=== PATIENT | male | born 1960 | race Caucasian/White ===

== ENCOUNTER 2022-05-18 08:04 | Outpatient (REF) | payer MEDICAID, SELFPAY ==
--- NOTE | ~2022-05-18 | XR_ITS ---
EXAMINATION: XR SHOULDER, LEFT CLINICAL INFORMATION: Osteoarthritis COMPARISON: Previous x-ray April 2014 TECHNIQUE: AP external rotation, Grashey, scapular Y, and axillary views of the left shoulder. FINDINGS: Bone alignment is normal. No fracture or dislocation. Mild arthritis at the glenohumeral joint. Moderate arthritis at the acromioclavicular joint. Normal soft tissues. XR/XR shoulder LT min 2V IMPRESSION: Arthritis.
--- NOTE | ~2022-05-18 | XR_ITS ---
EXAMINATION: KNEE X-RAY CLINICAL INFORMATION: Bilateral knee pain COMPARISON: None TECHNIQUE: 3 views of each knee FINDINGS: Left: Bone alignment is normal. No fracture or dislocation is seen. There is mild arthritis at the femoral tibial and patellofemoral joints. There is a small joint effusion. There is a soft tissue density seen on the lateral view projecting over the suprapatellar bursa likely representing something on the patient's skin or clothing. Right: Bone alignment is normal. No acute fracture or dislocation. There is severe arthritis at the patellofemoral joint. There is a large inferior osteophyte projecting off the inferior patella and proximal patellar tendon. There is a small joint effusion. XR/XR knee LT 3V IMPRESSION: Bilateral arthritis, greatest at the right patellofemoral joint.
--- NOTE | ~2022-05-18 | XR_ITS ---
EXAMINATION: KNEE X-RAY CLINICAL INFORMATION: Bilateral knee pain COMPARISON: None TECHNIQUE: 3 views of each knee FINDINGS: Left: Bone alignment is normal. No fracture or dislocation is seen. There is mild arthritis at the femoral tibial and patellofemoral joints. There is a small joint effusion. There is a soft tissue density seen on the lateral view projecting over the suprapatellar bursa likely representing something on the patient's skin or clothing. Right: Bone alignment is normal. No acute fracture or dislocation. There is severe arthritis at the patellofemoral joint. There is a large inferior osteophyte projecting off the inferior patella and proximal patellar tendon. There is a small joint effusion. XR/XR knee RT 3V IMPRESSION: Bilateral arthritis, greatest at the right patellofemoral joint.
== END 2022-05-18 08:05 | disposition home or self-care (01) ==
LOC: HO.XRAY 08:04
PROVIDERS: PCP Internal Medicine; Visit Provider Internal Medicine
DX: M19.012 Primary osteoarthritis, left shoulder (principal); M25.561 Pain in right knee; M25.562 Pain in left knee
CPT/HCPCS: 73030; 73562

== ENCOUNTER 2023-02-21 08:26 | Outpatient (REF) | payer MEDICAID, SELFPAY ==
--- NOTE | ~2023-02-21 | XR_ITS ---
EXAMINATION: XR SHOULDER, LEFT CLINICAL INFORMATION: Chronic left shoulder pain COMPARISON: None available. TECHNIQUE: AP external rotation, Grashey, scapular Y, and axillary views of the left shoulder. FINDINGS: Glenohumeral and acromioclavicular degenerative changes. No fracture or dislocation. Visualized left lung and ribs are unremarkable. Aortic calcifications. XR/XR shoulder LT min 2V IMPRESSION: Degenerative changes left shoulder. No acute bony pathology.
== END 2023-02-21 08:27 | disposition home or self-care (01) ==
LOC: HO.XRAY 08:26
PROVIDERS: PCP Internal Medicine; Visit Provider Internal Medicine
DX: M25.512 Pain in left shoulder (principal); G89.29 Other chronic pain
CPT/HCPCS: 73030

== ENCOUNTER 2025-03-10 10:55 | Outpatient (REF) | payer MEDICAID, SELFPAY ==
--- OUTSIDE RECORDS SUMMARY | 2025-03-10 12:30 | XMS_ITS | Encounter Summary ---
Author Organization [employer] Address [address] [facility] 7t [place] [address] Care Team Providers Care Business Unit Controller Name Role Phone Zoë Leiva MD Primary Care Provider [phone]- [phone] Encounter Details Date Type Department Care Team ([facility] st Contact Info) Description 02/23/2023 Orders Only [facility] CHC MED & PEDS [address] [place] [address] Zoë Leiva MD [address] [place] [address] Chronic left shoulder pain (Primary Dx) Social History Tobacco Use Types Packs/Day Years Used Date Smoking Tobacco: Never Smokeless Tobacco: Never Alcohol Use Standard Drinks/Week Comments Yes 12 (1 standard drink = 0.6 oz pu re alcohol) Sex and Gender Information Value Date Recorded Sex Assigned at Male 05/08/2022 10:20 AM EDT Legal Sex Male 10:20 AM EDT Gender Identity Male 05/08/2022 10:20 AM EDT Sexual Orientation Straight 05/08/2022 10 :20 AM EDT documented as of this encounter Plan of Treatment Not on file documented as of this encounter Visit Diagnoses Diagnosis Chronic left shoulder pain- Primary Pain in joint, shoulder region documented in this encounter Care Teams Business Unit Controller Relationship Specialty Start Date End Date Zoë Leiva MD [address] [place] [address] PCP - General Internal Medicine 04/27/15 documented as of this encounter"
--- OUTSIDE RECORDS SUMMARY | 2025-03-10 12:30 | XMS_ITS | Clinical Summary ---
Author Organization [employer] Address [address] [facility] 7t [place] [address] Care Team Providers Care Segmental Paving Supervisor Name Role Phone Zoë Leiva MD Primary Care Provider +- [phone] Allergies No known active allergies Medications * This document contains information received from the source organization and may not represent a complete record from that organization. hydroCHLOROthiazi de (Microzide) 12.5 MG capsuleIndication s:Primary hypertension TAKE ONE CAPSULE DAILY 90 capsule 1 3 Active losartan (Cozaar) 100 MG tabletIndications :Primary hypertension TAKE ONE TABLET DAILY 90 tablet 1 3 Active Diclofenac Sodium 1 % gelIndications:Ch ronic left shoulder pain To apply to the affected area 3 times a day 100 g 3 Active albuterol (2.5 MG/3ML) 0.083% nebulizer solution INHALE ONE AMPULE USING A NEBULIZER EVERY 6 HOURS NEEDED 90 mL 5 4 Active hydrALAZINE (Apresoline) 10 MG tabletIndications :Benign hypertension TAKE ONE TABLET BY MOUTH THREE TIMES DAILY 270 tablet 1 4 Active hydroCHLOROthiazi de 12.5 MG tabletIndications :Benign hypertension TAKE ONE TABLET EVERY MORNING 30 tablet 11 5 Active losartan (Cozaar) 100 MG tabletIndications :Benign hypertension TAKE ONE TABLET DAILY 30 tablet 5 Active amLODIPine (Norvasc) 10 MG tabletIndications :Benign hypertension TAKE ONE TABLET EVERY MORNING 30 tablet 11 5 Active Omeprazole 20 MG tablet delayed-releaseIn dications:Reflux gastritis Take 1 tablet (20 mg) by mouth Once per day. 30 tablet 1 5 Active budesonide-formot kell (Symbicort) 160-4.5 MCG/ACT inhalerIndication s:Moderate persistent asthma, unspecified whether complicated Inhale 2 puffs in the morning and at bedtime. Rinse mouth with water after use to reduce aftertaste and incidence of candidiasis. Do not swallow. 10.2 g 5 5 Active albuterol (Ventolin HFA) 108 (90 Base) MCG/ACT inhalerIndication s:Moderate persistent asthma, unspecified whether complicated Inhale 2 puffs every 6 (six) hours if needed for wheezing. 18 g 5 5 Active allopurinol (Zyloprim) 300 MG tablet TAKE ONE TABLET TWICE DAILY 180 tablet 1 5 Active simvastatin (Zocor) 20 MG tabletIndications :Hypercholesterol emia TAKE ONE TABLET EVERY EVENING 90 tablet 1 5 Active Active Problems Problem Noted Date Diagnosed Date PENG (generalized anxiety disorder) 02/23/2025 Current moderate episode of major depressive disorder without prior episode 02/23/2025 Gout 01/01/2014 Benign hypertension 10/01/2013 Asthma 10/01/2013 Encounters * This document contains information received from the source organization and may not represent a complete record from that organization. Date Type Department Care Team Description 02/25/2025 Telephone [facility] MEDICINE [address] [place] [address] Zoë Leiva MD 02/17/2025 2:00 PM EDT Office Visit [facility] CHC MED & PEDS [address] [place], [place] [phone] Zoë Leiva MD Benign hypertension (Primary Dx); Moderate persistent asthma, unspecified whether complicated; Tremor; Other depression; Dietary counseling; Exercise counseling; Class 3 severe obesity due to excess calories with serious comorbidity and body mass index (BMI) of 40.0 to 44.9 in adult 02/17/2025 Travel 02/03/2025 Refill [facility] MEDICINE [address] [place] [address] Zoë Leiva MD Hypercholesterolemia 01/07/2025 Telephone [facility] [address] [place] [address] Zoë Leiva MD EEG ORDER 12/23/2024 Telephone [facility] [address] [place], [place] [phone] Zoë Leiva MD from Last 3 Months Immunizations Immunization Administration Dates Next Due Influenza Injectable Quadriv alant Preservative Free IIV4 MDCK 06/07/2021,04/20/2020 Influenza injectable quadriv alent IIV4 with preservative 05/05/2019 Influenza injectable quadriv alent preservative free 05/16/2022,06/17/2018,04/26/2017 Influenza, IIV3, injectable 04/13/2014 Pneumococcal Conjugate PCV 20 03/07/2024 Tdap 04/26/2017 Zoster, Recombinant 11/12/2020,04/20/2020 Family History Medical History Relation Name Comments Hypertension Mother Stroke Mother Relation Name Status Comments Mother Social History Tobacco Use Types Packs/Day Years Used Date Smoking Tobacco: Never Smokeless Tobacco: Never Tobacco Cessation:Counseling Given: Not Answered Alcohol Use Standard Drinks/Week Comments Yes 12 (1 standard drink = 0.6 oz pu re alcohol) Depression Answer Date Recorded Patient Health Questionnaire-9 Score 15 02/23/2025 Patient Health Questionnaire-9 Score 15 02/23/2025 Last PHQ-9: Questionnaire Data Not on file 0 02/23/2025 Housing Stability Answer Date Recorded What is your housing situation today? I have petr foreman 02/17/[address] you li ve. Do you have problems with any of the following? None of the above 02/17/2025 Food Insecurity Answer Date Recorded Within the past 12 months, y ou worried that your food would run out before you got money to buy more: Never True 02/17/2025 Within the past 12 months,th e food you bought just didn't last and you didn't have enough money to get more: Never True 06/2025 Transportation Answer Date Recorded In the past 12 months, has l ack of transportation kept you from medical appts, meetings, work or from getting things needed for daily living? No 02/17/2025 Utilities Answer Date Recorded In the past 12 months, has t he electric, gas, oil or water company threatened to shut off services in your home? No 02/17/2025 Depression Answer Date Recorded Patient Health Questionnaire-2 Score 4 02/23/2025 Internet Access Answer Date Recorded Internet Access Q1 No 02/17/2025 Internet Access Q2 I do not want or need it 02/06 Sex and Gender Information Value Date Recorded Sex Assigned at Male 05/08/2022 10:20 AM EDT Legal Sex Male 10:20 AM EDT Gender Identity Male 05/08/2022 10:20 AM EDT Sexual Orientation Straight 05/08/2022 10 :20 AM EDT Last Filed Vital Signs Vital Sign Reading Time Taken Comments Blood Pressure 132/80 02/17/2025 2:03 PM EDT manually checked Pulse 79 02/17/2025 2:03 PM EDT Temperature 36.5 C (97.7 F) 02/17/2025 2:03 PM EDT Respiratory Rate 20 02/17/2025 2:03 PM EDT Oxygen Saturation 98% 11/20/2024 12: 21 PM EDT Inhaled Oxygen Concentration - - Weight 116 kg (256 lb) 02/17/2025 2:03 PM EDT Height 167.6 cm (5' 6 ) 02/17/2025 2:03 PM EDT Body Mass Index 41.32 02/17/2025 2:03 PM EDT Plan of Treatment Health Maintenance Due Date Last Done Comments CT Colonography 1962 Colonoscopy 1962 Colorectal Cancer Screening 1962 FIT DNA/Cologuard 1962 FIT 1962 FOBT 1962 HIV Screening 1962 Lipid Panel 1962 Sigmoidoscopy 1962 Alcohol/Substance Use Screening 1974 Hepatitis C Screening 02/19/1980 RSV Patients and Patients Aged 60 years or older (1 - Risk 60-74 years 1-dose series) 2022 COVID-19 Vaccine ( season) 2024 10/20/2020, 09/22/2020 Influenza Vaccine (#1) 2025 , 06/07/2021, 04/20/2020, Additional history exists Depression Monitoring 08/26/2025 02/23/2025, 025 Disability Screening 02/17/2026 02/17/2025 SDOH Screening 02/17/2026 02/17/2025 Tobacco Screening 02/17/2026 02/17/2025 DTaP/Tdap/Td Vaccines (2 - Td or Tdap) 04/26/2027 04/26/2017 Zoster Vaccines Completed 11/12/2020, 04/20/2020 Pneumococcal Vaccine: 50+ Years Completed 03/07/2024 HIB Vaccines Aged Out No longer eligi ble based on patient's age to complete this topic HPV Vaccines Aged Out No longer eligi ble based on patient's age to complete this topic Hepatitis A Vaccines Aged Out No long er eligible based on patient's age to complete this topic Hepatitis B Vaccines Aged Out No long er eligible based on patient's age to complete this topic IPV Vaccines Aged Out No longer eligi ble based on patient's age to complete this topic Meningococcal B Vaccine Aged Out No l onger eligible based on patient's age to complete this topic Meningococcal Vaccine Aged Out No myrna maggie eligible based on patient's age to complete this topic RSV under 20 months Aged Out No longe r eligible based on patient's age to complete this topic Rotavirus Vaccines Aged Out No longer eligible based on patient's age to complete this topic Insurance [facility] C3 Care Teams Segmental Paving Supervisor Relationship Specialty Start Date End Date Zoë Leiva MD [address] [place] [phone] PCP - General Internal Medicine 04/27/15
[2025-03-10 15:07] LABS: Alanine Aminotransferase 28 U/L (0-40); Albumin Level 4.6 g/dL (3.5-5.0); Alkaline Phosphatase 78 U/L (39-117); Anion Gap 11 (12-20); Aspartate Amino Transferase 32 U/L (5-37); Blood Urea Nitrogen 12 mg/dL (9-16); Calcium 8.9 mg/dL (8.4-10.2); Carbon Dioxide 35 mmol/L (22-29); Chloride 101 mmol/L (96-108); Cholesterol 153 mg/dL (<200); Estimated Glomerular Filt Rate > 60; HDL Cholesterol 54 mg/dL (>40); Potassium 4.0 mmol/L (3.3-5.1); Sodium 143 mmol/L (135-145); Total Protein 7.1 g/dL (6.5-8.0); Triglycerides 93 mg/dL (<150)
[2025-03-11 08:22] LABS: ~HepC Num1 0.16 S/CO (0.00-0.79); ~Hepatitis C Antibody Nonreactive (Nonreactive)
== END 2025-03-10 10:56 | disposition home or self-care (01) ==
LOC: HO.CHCLDS 10:55
PROVIDERS: Visit Provider Internal Medicine
DX: I10 Essential (primary) hypertension (principal); Z11.59 Encounter for screening for other viral diseases
CPT/HCPCS: 36415; 80053; 80061; 84443; 86803

== ENCOUNTER 2025-03-11 07:42 | Outpatient (REF) | payer MEDICAID, SELFPAY ==
--- OUTSIDE RECORDS SUMMARY | 2025-03-11 07:46 | XMS_ITS | Encounter Summary ---
Author Organization [employer] Address [address] [facility] 7t [place] [address] Care Team Providers Care Slope Hoist Operator Name Role Phone Zoë Leiva MD Primary Care Provider [phone]- [phone] Encounter Details Date Type Department Care Team ([facility] st Contact Info) Description 02/23/2023 Orders Only [facility] CHC MED & PEDS [address] [place] [address] Zoë Leiva MD [address] [place] [address] Chronic left shoulder pain (Primary Dx) Social [...] region documented in this encounter Care Teams Slope Hoist Operator Relationship Specialty Start Date End Date Zoë Leiva MD [address] [place] [address] PCP - General Internal Medicine 04/27/15 documented as of this encounter
--- OUTSIDE RECORDS SUMMARY | 2025-03-11 07:47 | XMS_ITS | Encounter Summary ---
Author Organization [employer] Address [address] [facility] 7t [place] [address] Care Team Providers Care Cable Television Line Technician Name Role Phone Zoë Leiva MD Primary Care Provider [phone] Encounter Details Date Type Department Care Team (Latest Contact Info) Description 03/10/2025 Results Follow-Up [facility] MEDICINE [address] [place] [address] Kayla Truong, RN [address] [place] [address] Lipid Panel, Standard, Comprehensive Metabolic Panel, TSH W/Reflex to FT4 Social History Tobacco Use Types Packs/Day Years [...] your housing situation today? I have petr kellen 02/17/[address] you li [...] AM EDT documented as of this encounter Miscellaneous Notes * Telephone Encounter - Kayla Truong RN - 03/10/2025 4:08 PM EDT T/C to pt via [employer] Pillar Worker #[id number] to advise of message from PCP re: lab results. No answer, v/m left to return call to [facility] nurses. * Telephone Encounter - Kayla Truong RN - 03/10/2025 4:00 PM EDT ----- Message from Zoë Leiva MD sent at 03/10/2025 3:42 PM EDT ----- Please call. Labs reviewed: 1) normal cholesterol level. No intervention needed in that regard. Patient is to continue with a low-cholesterol diet. 2) normal TSH. No intervention needed. 3) elevated carbon dioxide in the blood which could be related to patient's asthma. Unclear if the asthma is well-controlled. If Has to use his albuterol (the rescue inhaler) 2-3 times a week, I will have to order a pulmonary function test to assess if he has chronic obstructive pulmonary disease. ----- Message ----- From: Interface, Lab Results In Sent: 03/10/2025 3:07 PM EDT To: Zoë Leiva MD documented in this encounter Plan of Treatment Not on file documented as of this encounter Visit Diagnoses Not on filedocumented in this encounter Additional Health Concerns Assessment Noted Time PHQ-9 Depression Total Score: 15 025 3:22 PM EDT documented as of this encounter Care Teams Cable Television Line Technician Relationship Specialty Start Date End Date Zoë Leiva MD [address] [place] [phone] PCP - General Internal Medicine 04/27/15 documented as of this encounter
--- OUTSIDE RECORDS SUMMARY | 2025-03-11 07:47 | XMS_ITS | Clinical Summary ---
Author Organization [employer] Address [address] [facility] 7t [place] [address] Care Team Providers Care Application Infrastructure Engineer Name Role Phone Zoë Leiva MD Primary Care Provider +- [phone] Allergies No known active allergies Medications * [...] organization. Date Type Department Care Team Description 03/10/2025 Results Follow-Up [address] [address] Kayla Truong RN Lipid Panel, Standard, Comprehensive Metabolic Panel, TSH W/Reflex to FT4 03/10/2025 Orders Only [facility] MED & PEDS [address] [place] [address] Zoë Leiva MD 02/25/2025 Telephone [facility] MEDICINE [address] [place] [address] Zoë Leiva MD 02/17/2025 2:00 PM EDT Office Visit [facility] MED & PEDS [address] [place] [address] Zoë Leiva MD Benign hypertension (Primary Dx); Moderate persistent asthma, unspecified whether complicated; Tremor; Other depression; Dietary counseling; Exercise counseling; Class 3 severe obesity due to excess calories with serious comorbidity and body mass index (BMI) of 40.0 to 44.9 in adult 02/17/2025 Travel 02/03/2025 Refill [facility] MEDICINE [address] [place], [place] [phone] Zoë Leiva MD Hypercholesterolemia 01/07/2025 Telephone [facility] [address] [place], [place] [phone] Zoë Leiva MD EEG ORDER 12/23/2024 Telephone [facility] [address] [place], [place] [phone] Zoë Leiva MD from Last 3 Months [...] FIT 1962 FOBT 1962 HIV Screening 1962 Sigmoidoscopy 1962 Alcohol/Substance Use Screening 1974 Hepatitis C Screening 02/19/1980 RSV Patients and Patients Aged 60 years or older (1 - Risk 60-74 years 1-dose series) 2022 COVID-19 Vaccine (3 - 2025-26 season) 2025 10/20/2020, 09/22/2020 Influenza Vaccine (#1) 2025 , 06/07/2021, 04/20/2020, Additional history exists Depression Monitoring 08/26/2025 02/23/2025, 025 Disability Screening 02/17/2026 02/17/2025 SDOH Screening 02/17/2026 02/17/2025 Tobacco Screening 02/17/2026 02/17/2025 DTaP/Tdap/Td Vaccines (2 - Td or Tdap) 04/26/2027 04/26/2017 Lipid Panel 03/10/2030 03/10/2025 Zoster Vaccines Completed 11/12/2020, 04/20/2020 Pneumococcal Vaccine: [...] on patient's age to complete this topic Procedures Procedure Name Priority Date/Time Associated Diagnosis Comments TSH W/REFLEX TO FT4 Routine 03/10/2025 1 0:57 AM EDT Benign hypertension COMPREHENSIVE METABOLIC PANEL Routine 03/10/2025 10:57 AM EDT Benign hypertension LIPID PANEL, STANDARD Routine 03/10/2025 10:57 AM EDT Benign hypertension from Last 3 Months Results * TSH W/Reflex to FT4 (03/10/2025 10:57 AM EDT) TSH reflex Free T4 1.41 0.32 - 4.0 uIU/mL [facility] Blood Venous blood specimen / Unknown 03/10/2025 10:57 AM EDT 03/10/2025 2:27 PM EDT us Zoë Leiva MD LAB BLOOD ORDERABLES Final Result Performing Organization Address [facility] Co de Phone Number [facility] [address] [place] [phone] * Lipid Panel, Standard (03/10/2025 10:57 AM EDT) Triglycerides 93 <150 mg/dL [facility] Comment:Desirable Triglyceri de: less than 150 mg/dLBorderline High Triglyceride 150-199 mg/dLHigh Triglyceride: 200-499 mg/dLVery High Triglyceride: greater than or equal to 5OO mg/dL Cholesterol 153 <200 mg/dL [facility] Comment:Desirable Cholestero l: less than 200 mg/dLBorderline High Cholesterol: 200-239 mg/dLHigh Cholesterol: greater than 239 mg/dL LDL Cholesterol Calculated 81 <100 mg/dL [facility] Comment:Desirable LDL: less than 100 mg/dLNear Optimal/Above Optimal LDL: 110- 129 mg/dLBorderline High LDL: 130-159 mg/dLHigh LDL: 160-189 mg/dLVery High LDL: greater than or equal to 190 mg/dL HDL Cholesterol 54 >40 mg/dL [facility] Comment:Desirable HDL: great er than 40 mg/dL Note: This HDL assay may give artificially low results in patients with liver disease. Blood Venous blood specimen / Unknown 03/10/2025 10:57 AM EDT 03/10/2025 2:27 PM EDT us Zoë Leiva MD LAB BLOOD ORDERABLES Final Result Performing Organization Address City/[facility]/ZIP Co de Phone Number [facility] [address] [place] [phone] * (ABNORMAL) Comprehensive Metabolic Panel (03/10/2025 10:57 AM EDT) Sodium 143 135 - 145 mmol/L [facility] Potassium 4.0 3.3 - 5.1 mmol/L [facility] Chloride 101 96 - 108 mmol/L [facility] Carbon Dioxide 35(H) 22 - 29 mmol/L [facility] Anion Gap 11(L) 12 - 20 [facility] Urea Nitrogen (BUN) 12 9 - 16 mg/dL [facility] Creatinine, Serum 0.86 0.5 - 1.4 mg/dL [facility] Estimated Glomerular Filt Rate >60 [facility] Comment:Chronic Kidney Disea se: Estimated GFR < 60 mL/min/1.66p0Kulqli Kidney Disease: Estimated GFR < 15 mL/min/1.73m2 Glucose 103 60 - 115 mg/dL [facility] Calcium 8.9 8.4 - 10.2 mg/dL [facility] Bilirubin, Total 0.6 0.0 - 1.0 mg/dL [facility] Aspartate Amino Transferase 32 5 - 37 U/L [facility] Alanine Aminotransferase 28 0 - 40 U/L [facility] Total Protein 7.1 6.5 - 8.0 g/dL [facility] Albumin Level 4.6 3.5 - 5.0 g/dL [facility] Alkaline Phosphatase 78 39 - 117 U/L [facility] Blood Venous blood specimen / Unknown 03/10/2025 10:57 AM EDT 03/10/2025 2:27 PM EDT us Zoë Leiva MD LAB BLOOD ORDERABLES Final Result [facility] [address] [place] [phone] from Last 3 Months Insurance [facility] C[facility] Care Teams Application Infrastructure Engineer Relationship Specialty Start Date End Date Zoë Leiva MD [address] [place] [phone] PCP - General Internal Medicine 04/27/15
--- OUTSIDE RECORDS SUMMARY | 2025-03-11 07:47 | XMS_ITS | Encounter Summary ---
Author Organization [employer] Address [address] [facility] [address] 7t [place] [address] Care Team Providers Care Floor Waxer Name Role Phone Zoë Leiva MD Primary Care Provider [phone] Encounter Details Date Type Department Care Team ([facility] st Contact Info) Description 03/10/2025 Orders Only [facility] CHC MED & PEDS [address] [place], [place] [phone] Zoë Leiva MD [address] [place], [place] [phone] Social History Tobacco Use Types Packs/Day Years [...] documented as of this encounter Care Teams Floor Waxer Relationship Specialty Start Date End Date Zoë Leiva MD [address] [place] [address] PCP - General Internal Medicine 04/27/15 documented as of this encounter
--- NOTE | 2025-03-11 08:08 | EEG_ITS ---
Reason For EEG: Tremor Medications: symbicort, BP meds and high chol History: asthma, HLD, HTN- pt having episodes of coughing followed by dizziness and body tremor - no LOC or incontinence noted with spells- last episode was 2 weeks ago Clinical Observation: no clear clinical changes noted during the episodes of coughing ? pt remained asymptomatic during this study for dizziness Senior Planning Analyst Comments: Photic stimulation: Completed Hyperventilation: omitted- pt SOB, coughing Behavioral state: restless, short of breath State of consciousness: Awake Skull defect: no Sedation: No Handedness: Right Description: This is a 16 channel EEG with an EKG lead. Patient is awake during the tracing. Background is low amplitude fast with no obvious asymmetry or paroxysmal tendency. Photic stimulation does not produce any significant abnormality. Hyperventilation is not performed. Cardiac lead does not reveal any significant abnormality. No sharp wave spikes or paroxysmal tendency noted. Impression: Unremarkable EEG. MTDD
== END 2025-03-11 07:43 | disposition home or self-care (01) ==
LOC: HO.NEURO 07:42
PROVIDERS: PCP Internal Medicine; Visit Provider Internal Medicine
DX: R25.1 Tremor, unspecified (principal)
CPT/HCPCS: 95816

== ENCOUNTER → 2025-03-11 08:08 | Outpatient (BNV) | payer MEDICAID, SELFPAY | PROVIDERS: PCP Internal Medicine; Visit Provider Psychiatry & Neurology Neurology | DX: R25.1 Tremor, unspecified (principal) | CPT/HCPCS: 95816 ==